=== PATIENT | female | born 1960 | race Caucasian/White ===

== ENCOUNTER 2024-08-25 14:54 | Emergency (ER) | payer MEDICARE, OTHER, SELFPAY ==
[2024-08-25 15:26] VITALS: BP 109/64; PULSE 84; RESP 16; TEMP 36.3; O2SAT 98; BMI 21.4
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
[2024-08-25 18:50] VITALS: BP 95/55; PULSE 55; RESP 16; O2SAT 100
== END 2024-08-25 18:50 | disposition home or self-care (01) ==
PROVIDERS: Emergency Provider Student in an Organized Health Care Education/Training Program
DX: S01.81XA Laceration without foreign body of other part of head, initial encounter (principal); R51.9 Headache, unspecified; M54.2 Cervicalgia; R07.89 Other chest pain; V19.9XXA Pedal cyclist (driver) (passenger) injured in unspecified traffic accident, initial encounter
CPT/HCPCS: 12011; 70450; 71250; 72125; 73080; 73110; 73130; 99281; 99284